=== PATIENT | female | born 1935 | race Caucasian/White ===

== ENCOUNTER 2018-01-24 16:18 | Inpatient (IN) | END 2018-01-26 13:15 | disposition home or self-care (01) | DRG 638 ==

== ENCOUNTER 2018-06-29 14:36 | Emergency (ER) | END 2018-06-29 19:15 | disposition home or self-care (01) ==

== ENCOUNTER 2018-07-01 15:20 | Emergency (ER) | END 2018-07-01 19:32 | disposition home or self-care (01) ==